=== PATIENT | female | born 1985 | race Two or more races ===

== ENCOUNTER 2018-10-30 10:17 | Inpatient (IN) | payer OTHER ==
[2018-10-30 11:32] VITALS: BMI 20.8
--- NOTE | 2018-10-30 12:04 | HP ---
CIWA Score Nausea/Vomitin-No Nausea/No Vomiting Muscle Tremors: 1-None Visible, but [place] Anxiety: 4-Mod. Anxious/Guarded Agitation: 3 Paroxysmal Sweats: No Perspiration Orientation: 0-Oriented Tacttile Disturbances: 3-Moderate Itch/Numb/Burn Auditory Disturbances: 0-None Visual Disturbances: 0-None Headache: 3-Moderate CIWA-Ar Total Score: 14 - Admission Criteria OASAS Guidelines: Admission for Medically Managed Detox: Requires at least one of the followin. CIWA greater than 12 2. Seizures within the past 24 hours 3. Delirium tremens within the past 24 hours 4. Hallucinations within the past 24 hours 5. Acute intervention needed for co occurring medical disorder 6. Acute intervention needed for co occurring psychiatric disorder 7. Severe withdrawal that cannot be handled at a lower level of care (continued vomiting, continued diarrhea, abnormal vital signs) requiring intravenous medication and/or fluids 8. Admission ROS [facility] Chief Complaint: ETOH WITHDRAWAL SX AND CRACK/COCAINE DEPENDENCE. Allergies/Adverse Reactions: Allergies Allergy/AdvReac Type Severity Reaction Status Date / Time No Known Allergies Allergy Verified 10/30/18 11:35 History of Present Illness: PATIENT PRESENTS WITH ETOH WITHDRAWAL SX AND CRACK/COCAINE DEPENDENCE. PATIENT STARTED DRINKING AT AGE 15 AND SMOKING CRACK AT AGE 31. PATIENT DRINKS 1 PINT OF LIQUOR DAILY AND LAST DRINK THIS AM. PATIENT DRINKS FIRST THING IN THE MORNING AND HAS HX OF BLACKOUTS. DENIES HX OF SEIZURES AND FALLS. ATTEMPTED REHAB LAST YEAR. THIS IS FIRST ADMISSION TO DETOX. PATIENT SMOKES 100 DOLLARS DAILY OF CRACK. LAST TIME SHE SMOKED WAS LAST NIGHT. PATIENT DENIES LEGAL ISSUES. HAS HX OF HIV SINCE , NON-COMPLIANT WITH MEDICATION, CVA AND INSOMNIA. DENIES SI/HI AND SUICIDE ATTEMPTS. Exam Limitations: No Limitations - Ebola screening Have you traveled outside of the country in the last 21 days: No Have you had contact with anyone from an Ebola affected area: No Have you been sick,other than usual withdrawal symptoms: No Do you have a fever: No - Review of Systems Constitutional: Changes in sleep, Unexplained wgt Loss EENT: reports: Nose Congestion Respiratory: reports: Cough Cardiac: reports: No Symptoms Reported GI: reports: Nausea, Poor Fluid Intake, Abdominal cramping : reports: Burning Musculoskeletal: reports: No Symptoms Reported Integumentary: reports: Flushing Neuro: reports: Headache, Numbness, Tingling, Tremors Endocrine: reports: Unexplained Weight Loss Hematology: reports: No Symptoms Reported Psychiatric: reports: Orientated x3, Anxious Patient History - Patient Medical History Hx Anemia: No Hx Asthma: No Hx Chronic Obstructive Pulmonary Disease (COPD): No Hx Cancer: No Hx Cardiac Disorders: No Hx Congestive Heart Failure: No Hx Hypertension: No Hx Hypercholesterolemia: No Hx Pacemaker: No HX Cerebrovascular Accident: No Hx Seizures: No Hx Dementia: No Hx Diabetes: No Hx Gastrointestinal Disorders: No Hx Liver Disease: No Hx Genitourinary Disorders: No Hx Sexually Transmitted Disorders: No Hx Renal Disease (ESRD): No Hx Thyroid Disease: No Hx Human Immunodeficiency Virus (HIV): Yes (SINCE , NONCOMPLIANT WITH TREATMENT) Hx Hepatitis C: No Hx Depression: No Hx Suicide Attempt: No Hx Bipolar Disorder: No Hx Schizophrenia: No - Patient Surgical History Past Surgical History: Yes Hx Neurologic Surgery: No Hx Cataract Extraction: No Hx Cardiac Surgery: No Hx Lung Surgery: Yes (pneumothorax, left in 2012) Hx Breast Surgery: No Hx Breast Biopsy: No Hx Abdominal Surgery: No Hx Appendectomy: No Hx Cholecystectomy: No Hx Genitourinary Surgery: No Hx Section: Yes (x3) Hx Orthopedic Surgery: No Hx Hysterectomy: No Anesthesia Reaction: No - PPD History Previous Implant?: Yes Documented Results: Negative w/o proof Implanted On Prior R Admission?: No PPD to be Administered?: Yes - Reproductive History Patient is a Female of Child Bearing Age (11 -55 yrs old): Yes Patient : No - Smoking Cessation Smoking history: Current every day smoker Have you smoked in the past 12 months: Yes Aproximately how many cigarettes per day: 10 Hx Chewing Tobacco Use: No Initiated information on smoking cessation: Yes 'Breaking Loose' booklet given: 10/30/18 - Substance & Tx. History Hx Alcohol Use: Yes Hx Substance Use: Yes Substance Use Type: Alcohol, Cocaine Hx Substance Use Treatment: Yes - Substances Abused Crack Route: Smoking Frequency: Daily Amount used: $100 Age of first use: 31 Date of Last Use: 10/29/18 Alcohol-vodka/beer Route: Oral Frequency: Daily Amount used: 2 pts./1-6 pk. Age of first use: 15 Date of Last Use: 10/29/18 Family Disease History - Family Disease History Family Disease History: Other: Mother (,AIDS) Admission Physical Exam [facility] - Vital Signs Vital Signs: Vital Signs - 24 hr 10/30/18 11:28 Temperature 96.1 F L Pulse Rate 113 H Respiratory 17 Rate Blood Pressure 110/71 - Physical General Appearance: Yes: Disheveled, Thin, Tremorous, Anxious HEENTM: Yes: EOMI, Hearing grossly Normal, Normocephalic, Normal Voice, SILAS, Pharynx Normal, Nasal Congestion Respiratory: Yes: Chest Non-Tender, Lungs Clear, Normal Breath Sounds, No Respiratory Distress, No Accessory Muscle Use Neck: Yes: No masses,lesions,Nodules, Supple Breast: Yes: Breast Exam Deferred Cardiology: Yes: Regular Rhythm, Regular Rate, S1, S2 Abdominal: Yes: Normal Bowel Sounds, Non Tender, Soft Genitourinary: Yes: Burning Back: Yes: Normal Inspection Musculoskeletal: Yes: full range of Motion, Gait Steady Extremities: Yes: Normal Inspection, Normal Range of Motion, Tremors Neurological: Yes: 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 NML intact, Fully Oriented, Alert, Motor Strength 5/5, Normal Response, Other (ANXIOUS) Integumentary: Yes: Normal Color, Dry, Warm - Diagnostic (1) Alcohol dependence with uncomplicated withdrawal Current Visit: Yes Status: Acute (2) Cocaine dependence Current Visit: Yes Status: Chronic Qualifiers: Substance use status: uncomplicated Qualified Code(s): F14.20 - Cocaine dependence, uncomplicated (3) HIV positive Current Visit: Yes Status: Chronic (4) Old cerebrovascular accident (CVA) without late effect Current Visit: Yes Status: Chronic (5) Dysuria Current Visit: Yes Status: Acute Cleared for Admission [facility] - Detox or Rehab [facility] Level of Care: Medically Managed Detox Regimen/Protocol: Librium [facility] Breath Alcohol Content Breath Alcohol Content: 0 Urine Pregancy Test - Result Urine Test Results: Negative- NO Line Present Urine Drug Screen - Results Drug Screen Negative: No Urine Drug Screen Results: OPAL-Cocaine
[2018-10-30] MEDS ORDERED: P-EPHED 60MG/TRIPROLIDI 2.5MG TABLET PO PRN (12:15)
[2018-10-30] MEDS ORDERED: IBUPROFEN 400 MG TABLET (FP) PO PRN (12:15)
[2018-10-30] MEDS ORDERED: ACETAMINOPHEN 325 MG TABLET (FP) PO PRN (12:15)
[2018-10-30] MEDS ORDERED: MAGNESIUM CITRATE 300 ML BOTTLE PO PRN (12:15)
[2018-10-30] MEDS ORDERED: MAGNESIUM HYDROX 2400MG/30ML ORAL SUSPENSION 30 ML CUP PO PRN (12:15)
[2018-10-30] MEDS ORDERED: LOPERAMIDE HCL 2 MG CAPSULE PO PRN (12:15)
[2018-10-30] MEDS ORDERED: guaiFENesin/D-METHORPHAN HB 10 ML UNIT-DOSE CUPS PO PRN (12:15)
[2018-10-30] MEDS ORDERED: MENTHOL/PHENOL 1 EACH UD MM PRN (12:15)
[2018-10-30] MEDS ORDERED: MAG HYDROX/AL HYDROX/SIMETH 30 ML UNIT-DOSE CUP PO PRN (12:15)
[2018-10-30] MEDS ORDERED: NICOTINE POLACRILEX 2 MG GUM BUC PRN (12:15)
[2018-10-30] MEDS ORDERED: chlordiazePOXIDE HCL 25 MG CAPSULE PO PRN (12:17)
--- NOTE | 2018-10-30 13:03 | EKG ---
Test Reason : Blood Pressure : / mmHG Vent. Rate : 109 BPM Atrial Rate : 109 BPM P-R Int : 146 ms QRS Dur : 072 ms QT Int : 314 ms P-R-T Axes : 064 060 026 degrees QTc Int : 422 ms SINUS TACHYCARDIA POSSIBLE LEFT ATRIAL ENLARGEMENT BORDERLINE ECG NO PREVIOUS ECGS AVAILABLE Confirmed by Vin Lacey ([id number]) on 10/30/2018 1:03:08 PM Referred By: Confirmed By:Vin Lacey
[2018-10-30] MEDS: chlordiazePOXIDE HCL 25 MG CAPSULE PO SCH ×2 (17:23→22:52)
[2018-10-30 17:49] LABS: URINE APPEARANCE TURBID; URINE BILIRUBIN NEGATIVE (<2.0 mg/dL); URINE COLOR AMBER; URINE GLUCOSE (UA) NEGATIVE (NEGATIVE); URINE KETONE 1+ (NEGATIVE); URINE LEUK ESTERASE 2+ (NEGATIVE); URINE NITRITE POSITIVE (NEGATIVE); URINE PROTEIN 2+ (NEGATIVE); URINE UROBILINOGEN NEGATIVE mg/dL (0.2-1.0)
[2018-10-30 17:58] LABS: EPI CELLS RARE /HPF (FEW); URINE MUCUS FEW
[2018-10-30] MEDS: THIAMINE HCL 100 MG TABLET (FP) PO SCH (22:52)
[2018-10-30] MEDS: MELATONIN 5 MG TABLETS PO PRN (22:52)
[2018-10-31] MEDS: chlordiazePOXIDE HCL 25 MG CAPSULE PO SCH ×4 (05:51→22:08)
[2018-10-31] MEDS: PRENATAL VITAMINS W/ FOLIC ACID TABLET (FP) PO SCH (10:35)
[2018-10-31] MEDS: NICOTINE 21 MG/24 HOURS TOPICAL PATCH TD SCH (10:35)
[2018-10-31 11:00] LABS: HEMATOCRIT 43.4 % (32.4-45.2); HEMOGLOBIN 14.4 GM/dL (10.7-15.3); MCH 30.2 pg (25.7-33.7); MCHC 33.2 g/dl (32.0-36.0); MEAN CELL VOLUME 91.1 fl (80-96); MEAN PLT VOLUME 12.6 fl (7.5-11.1); PLATELET COUNT 81 K/MM3 (134-434); RBC 4.77 M/mm3 (3.60-5.2); WHITE BLOOD COUNT 3.1 K/mm3 (4.0-10.0)
[2018-10-31 11:39] LABS: ALBUMIN 3.3 g/dl (3.4-5.0); ALK PHOS 74 U/L (45-117); ANION GAP 11 MMOL/L (8-16); BILIRUBIN,TOTAL 0.4 mg/dL (0.2-1); BLOOD UREA NITROGEN 15 mg/dL (7-18); CALCIUM 8.6 mg/dL (8.5-10.1); CHLORIDE 105 mmol/L (98-107); CO2 23 mmol/L (21-32); CREATININE 1.1 mg/dL (0.55-1.3); GLUCOSE,RANDOM 108 mg/dL (74-106); SGOT/AST 48 U/L (15-37); SGPT/ALT 35 U/L (13-61); SODIUM 138 mmol/L (136-145); TOT PROT 8.8 g/dl (6.4-8.2)
[2018-10-31] MEDS ORDERED: FLU VACCINE QUAD 60 MCG/0.5 ML (MDV 18-19) IM ONE (12:00)
[2018-10-31 13:03] LABS: POTASSIUM 2.8 mmol/L (3.5-5.1)
--- NOTE | 2018-10-31 14:14 | PN ---
[facility] CIWA - CIWA Score Nausea/Vomitin-No Nausea/No Vomiting Muscle Tremors: 3 Anxiety: 2 Agitation: 3 Paroxysmal Sweats: 2 Orientation: 0-Oriented Tacttile Disturbances: 0-None Auditory Disturbances: 0-None Visual Disturbances: 0-None Headache: 0-None Present CIWA-Ar Total Score: 10 S Progress Note (SOAP) Subjective: tired sleepy sweats mild shakes interrupted sleep body aches Objective: 10/31/18 14:13 Vital Signs Temperature 97.9 F 10/31/18 13:30 Pulse Rate 105 H 10/31/18 13:30 Respiratory Rate 18 10/31/18 13:30 Blood Pressure 99/64 10/31/18 13:30 O2 Sat by Pulse Oximetry (%) Laboratory Tests 10/30/18 10/31/18 10/31/18 17:00 06:00 06:00 WBC 3.1 L RBC 4.77 Hgb 14.4 Hct 43.4 MCV 91.1 MCH 30.2 MCHC 33.2 RDW 15.0 Plt Count 81 L MPV 12.6 H Sodium 138 Potassium 2.8 L* Chloride 105 Carbon Dioxide 23 Anion Gap 11 BUN 15 Creatinine 1.1 Creat Clearance w eGFR 57.20 Random Glucose 108 H Calcium 8.6 Total Bilirubin 0.4 AST 48 H ALT 35 Alkaline Phosphatase 74 Total Protein 8.8 H Albumin 3.3 L Urine Color Kaylee Urine Appearance Turbid Urine pH 6.0 Ur Specific [place] 1.025 Urine Protein 2+ H Urine Glucose (UA) Negative Urine Ketones 1+ H Urine Blood 2+ H Urine Nitrite Positive Urine Bilirubin Negative Urine Urobilinogen Negative Ur Leukocyte Esterase 2+ H Urine WBC (Auto) 1623 Urine RBC (Auto) 89 Ur Epithelial Cells Rare Urine Mucus Few RPR Titer 10/31/18 06:00 WBC RBC Hgb Hct MCV MCH MCHC RDW Plt Count MPV Sodium Potassium Chloride Carbon Dioxide Anion Gap BUN Creatinine Creat Clearance w eGFR Random Glucose Calcium Total Bilirubin AST ALT Alkaline Phosphatase Total Protein Albumin Urine Color Urine Appearance Urine pH Ur Specific [place] Urine Protein Urine Glucose (UA) Urine Ketones Urine Blood Urine Nitrite Urine Bilirubin Urine Urobilinogen Ur Leukocyte Esterase Urine WBC (Auto) Urine RBC (Auto) Ur Epithelial Cells Urine Mucus RPR Titer Nonreactive low potassium noted; kcl ordered repeat u/a aaox3 lying in bed no acute distress Assessment: 10/31/18 14:14 withdrawal sx Plan: continue detox increase fluids
[2018-10-31] MEDS: POTASSIUM CHLORIDE ORAL LIQUID 20 MEQ/15 ML PO SCH ×3 (14:45→22:08)
[2018-10-31] MEDS: THIAMINE HCL 100 MG TABLET (FP) PO SCH (22:08)
[2018-10-31] MEDS: MELATONIN 5 MG TABLETS PO PRN (22:09)
[2018-11-01] MEDS: hydrOXYzine PAMOATE 50 MG CAPSULE (FP) PO PRN (00:38)
[2018-11-01] MEDS: POTASSIUM CHLORIDE ORAL LIQUID 20 MEQ/15 ML PO SCH (03:30)
[2018-11-01] MEDS: chlordiazePOXIDE HCL 25 MG CAPSULE PO SCH ×2 (05:47→11:09)
[2018-11-01] MEDS: NICOTINE 21 MG/24 HOURS TOPICAL PATCH TD SCH (11:06)
[2018-11-01] MEDS: PRENATAL VITAMINS W/ FOLIC ACID TABLET (FP) PO SCH (11:06)
--- NOTE | 2018-11-01 14:05 | PN ---
[facility] CIWA - CIWA Score Nausea/Vomitin-No Nausea/No Vomiting Muscle Tremors: 3 Anxiety: 3 Agitation: 3 Paroxysmal Sweats: 2 Orientation: 0-Oriented Tacttile Disturbances: 0-None Auditory Disturbances: 0-None Visual Disturbances: 0-None Headache: 0-None Present CIWA-Ar Total Score: 11 [facility] Progress Note (SOAP) Subjective: sweats body aches tired interrupted sleep Objective: 11/01/18 14:04 Vital Signs Temperature 98.8 F 11/01/18 09:24 Pulse Rate 118 H 11/01/18 09:24 Respiratory Rate 18 11/01/18 09:24 Blood Pressure 111/78 11/01/18 09:24 O2 Sat by Pulse Oximetry (%) Laboratory Tests 10/30/18 10/31/18 10/31/18 17:00 06:00 06:00 WBC 3.1 L RBC 4.77 Hgb 14.4 Hct 43.4 MCV 91.1 MCH 30.2 MCHC 33.2 RDW 15.0 Plt Count 81 L MPV 12.6 H Sodium 138 Potassium 2.8 L* Chloride 105 Carbon Dioxide 23 Anion Gap 11 BUN 15 Creatinine 1.1 Creat Clearance w eGFR 57.20 Random Glucose 108 H Calcium 8.6 Total Bilirubin 0.4 AST 48 H ALT 35 Alkaline Phosphatase 74 Total Protein 8.8 H Albumin 3.3 L Urine Color Kaylee Urine Appearance Turbid Urine pH 6.0 Ur Specific [place] 1.025 Urine Protein 2+ H Urine Glucose (UA) Negative Urine Ketones 1+ H Urine Blood 2+ H Urine Nitrite Positive Urine Bilirubin Negative Urine Urobilinogen Negative Ur Leukocyte Esterase 2+ H Urine WBC (Auto) 1623 Urine RBC (Auto) 89 Ur Epithelial Cells Rare Urine Mucus Few RPR Titer 10/31/18 06:00 WBC RBC Hgb Hct MCV MCH MCHC RDW Plt Count MPV Sodium Potassium Chloride Carbon Dioxide Anion Gap BUN Creatinine Creat Clearance w eGFR Random Glucose Calcium Total Bilirubin AST ALT Alkaline Phosphatase Total Protein Albumin Urine Color Urine Appearance Urine pH Ur Specific [place] Urine Protein Urine Glucose (UA) Urine Ketones Urine Blood Urine Nitrite Urine Bilirubin Urine Urobilinogen Ur Leukocyte Esterase Urine WBC (Auto) Urine RBC (Auto) Ur Epithelial Cells Urine Mucus RPR Titer Nonreactive potassium level ordered for tomorrow aaox3 lying in bed no acute distress Assessment: 11/01/18 14:05 withdrawal sx Plan: continue detox hold if librium too sedating increase fluids
[2018-11-01] MEDS ORDERED: chlordiazePOXIDE 5 MG CAPSULE PO SCH (17:00)
[2018-11-01 18:50] LABS: URINE APPEARANCE SLCLOUDY; URINE BILIRUBIN NEGATIVE (<2.0 mg/dL); URINE COLOR STRAW; URINE GLUCOSE (UA) NEGATIVE (NEGATIVE); URINE KETONE NEGATIVE (NEGATIVE); URINE LEUK ESTERASE 2+ (NEGATIVE); URINE NITRITE NEGATIVE (NEGATIVE); URINE PROTEIN 1+ (NEGATIVE); URINE UROBILINOGEN NEGATIVE mg/dL (0.2-1.0)
[2018-11-01 18:54] LABS: EPI CELLS RARE /HPF (FEW)
[2018-11-01] MEDS: MELATONIN 5 MG TABLETS PO PRN (22:12)
[2018-11-01] MEDS: THIAMINE HCL 100 MG TABLET (FP) PO SCH (22:13)
[2018-11-02] MEDS: hydrOXYzine PAMOATE 50 MG CAPSULE (FP) PO PRN (05:15)
--- NOTE | 2018-11-02 10:32 | PN ---
[facility] Progress Note (SOAP) Subjective: tired sweats feeling better Objective: 11/02/18 11:15 Vital Signs Temperature 98.2 F 11/02/18 09:45 Pulse Rate 118 H 11/02/18 09:45 Respiratory Rate 16 11/02/18 09:45 Blood Pressure 94/73 11/02/18 09:45 O2 Sat by Pulse Oximetry (%) Laboratory Tests 10/30/18 10/31/18 10/31/18 17:00 06:00 06:00 WBC 3.1 L RBC 4.77 Hgb 14.4 Hct 43.4 MCV 91.1 MCH 30.2 MCHC 33.2 RDW 15.0 Plt Count 81 L MPV 12.6 H Sodium 138 Potassium 2.8 L* Chloride 105 Carbon Dioxide 23 Anion Gap 11 BUN 15 Creatinine 1.1 Creat Clearance w eGFR 57.20 Random Glucose 108 H Calcium 8.6 Total Bilirubin 0.4 AST 48 H ALT 35 Alkaline Phosphatase 74 Total Protein 8.8 H Albumin 3.3 L Urine Color Kaylee Urine Appearance Turbid Urine pH 6.0 Ur Specific [place] 1.025 Urine Protein 2+ H Urine Glucose (UA) Negative Urine Ketones 1+ H Urine Blood 2+ H Urine Nitrite Positive Urine Bilirubin Negative Urine Urobilinogen Negative Ur Leukocyte Esterase 2+ H Urine WBC (Auto) 1623 Urine RBC (Auto) 89 Ur Epithelial Cells Rare Urine Mucus Few RPR Titer 10/31/18 10/31/18 11/02/18 06:00 14:00 07:00 WBC RBC Hgb Hct MCV MCH MCHC RDW Plt Count MPV Sodium 140 Potassium 3.9 Chloride 108 H Carbon Dioxide 25 Anion Gap 7 L BUN 20 H Creatinine 0.9 Creat Clearance w eGFR > 60 Random Glucose 79 Calcium 8.5 Total Bilirubin 0.4 AST 39 H ALT 36 Alkaline Phosphatase 69 Total Protein 8.0 Albumin 3.0 L Urine Color Straw Urine Appearance Slcloudy Urine pH 7.0 Ur Specific [place] 1.016 Urine Protein 1+ H Urine Glucose (UA) Negative Urine Ketones Negative Urine Blood 3+ H Urine Nitrite Negative Urine Bilirubin Negative Urine Urobilinogen Negative Ur Leukocyte Esterase 2+ H Urine WBC (Auto) 164 Urine RBC (Auto) 488 Ur Epithelial Cells Rare Urine Mucus RPR Titer Nonreactive labs noted potassium improved aaox3 ambulating no acute distress Assessment: 11/02/18 11:16 mild withdrawal sx Plan: continue detox increase fluids d/c to rehab later today if bed is available
[2018-11-02] MEDS: PRENATAL VITAMINS W/ FOLIC ACID TABLET (FP) PO SCH (11:11)
[2018-11-02] MEDS: NICOTINE 21 MG/24 HOURS TOPICAL PATCH TD SCH (11:12)
[2018-11-02 11:13] LABS: ALK PHOS 69 U/L (45-117); ANION GAP 7 MMOL/L (8-16); BILIRUBIN,TOTAL 0.4 mg/dL (0.2-1); BLOOD UREA NITROGEN 20 mg/dL (7-18); CALCIUM 8.5 mg/dL (8.5-10.1); CHLORIDE 108 mmol/L (98-107); CO2 25 mmol/L (21-32); CREATININE 0.9 mg/dL (0.55-1.3); GLUCOSE,RANDOM 79 mg/dL (74-106); POTASSIUM 3.9 mmol/L (3.5-5.1); SGOT/AST 39 U/L (15-37); SGPT/ALT 36 U/L (13-61); SODIUM 140 mmol/L (136-145)
[2018-11-02 14:53] VITALS: BP 121/81; PULSE 120; TEMP 97.7
[2018-11-02] MEDS ORDERED: chlordiazePOXIDE HCL 10 MG CAPSULE PO SCH (17:00)
== END 2018-11-02 18:16 | disposition other institution (70) | DRG 774 ==
LOC: YASAS 10:17 → Y6N 12:26
PROC: HZ2ZZZZ Detoxification Services for Substance Abuse Treatment (ICD-10-PCS; principal; 2018-10-30)
DX: F10.230 Alcohol dependence with withdrawal, uncomplicated (principal); F14.20 Cocaine dependence, uncomplicated; F17.210 Nicotine dependence, cigarettes, uncomplicated; Z21 Asymptomatic human immunodeficiency virus [HIV] infection status; R30.0 Dysuria; Z86.73 Personal history of transient ischemic attack (TIA), and cerebral infarction without residual deficits; Z91.14 Patient's other noncompliance with medication regimen
CPT/HCPCS: 36415; 80053; 81003; 81015; 85027; 86593; 93005; 93010

== ENCOUNTER 2018-11-02 18:53 | Inpatient (IN) | payer OTHER ==
--- NOTE | 2018-11-02 12:00 | HP ---
KATELIN MONTANO Rehab Assess/Revision - Admission History Admitted to Rehab from: [facility] - Findings Detox History & Physical reviewed: Yes Concur with findings: Yes
--- NOTE | 2018-11-02 12:00 | HP ---
Inpatient Rehab Admission - Initial Determination Are CD services needed?: Yes Free of communicable disease: Yes Not in need of hospitalization: Yes - Rehab Admission Criteria Previous failed treatment: Yes Poor recovery environment: Yes Comorbidities: Yes Lacks judgement: Yes
[~2018-11-02 18:53] MED LIST: IBUPROFEN 400 MG TABLET (FP) PO PRN; LOPERAMIDE HCL 2 MG CAPSULE PO PRN; MAG HYDROX/AL HYDROX/SIMETH 30 ML UNIT-DOSE CUP PO PRN; MAGNESIUM CITRATE 300 ML BOTTLE PO PRN; MAGNESIUM HYDROX 2400MG/30ML ORAL SUSPENSION 30 ML CUP PO PRN; MENTHOL/PHENOL 1 EACH UD MM PRN; P-EPHED 60MG/TRIPROLIDI 2.5MG TABLET PO PRN; guaiFENesin/D-METHORPHAN HB 10 ML UNIT-DOSE CUPS PO PRN
[2018-11-02] MEDS: MELATONIN 5 MG TABLETS PO PRN (21:45)
[2018-11-02] MEDS: THIAMINE HCL 100 MG TABLET (FP) PO SCH (21:45)
[2018-11-03] MEDS: hydrOXYzine PAMOATE 50 MG CAPSULE (FP) PO PRN ×2 (06:41→21:00)
[2018-11-03] MEDS: ACETAMINOPHEN 325 MG TABLET (FP) PO PRN (09:02)
[2018-11-03] MEDS: NICOTINE 21 MG/24 HOURS TOPICAL PATCH TD SCH (09:02)
[2018-11-03] MEDS: PRENATAL VITAMINS W/ FOLIC ACID TABLET (FP) PO SCH (09:02)
--- NOTE | 2018-11-03 15:20 | PN ---
[facility] Progress Note Note: TC from RN - Pt c/o frequency, dysuria, hesitancy. Bactrim ordered
[2018-11-03] MEDS: MELATONIN 5 MG TABLETS PO PRN (21:00)
[2018-11-03] MEDS: THIAMINE HCL 100 MG TABLET (FP) PO SCH (21:00)
[2018-11-03] MEDS: SULFAMETHOXAZOLE/TRIMETHOPRIM 800MG/160MG D.S. TABLET PO SCH (21:00)
[2018-11-04] MEDS: hydrOXYzine PAMOATE 50 MG CAPSULE (FP) PO PRN ×2 (06:31→21:25)
[2018-11-04] MEDS: NICOTINE 21 MG/24 HOURS TOPICAL PATCH TD SCH (09:39)
[2018-11-04] MEDS: SULFAMETHOXAZOLE/TRIMETHOPRIM 800MG/160MG D.S. TABLET PO SCH ×2 (09:40→21:15)
[2018-11-04] MEDS: PRENATAL VITAMINS W/ FOLIC ACID TABLET (FP) PO SCH (09:40)
[2018-11-04] MEDS: ACETAMINOPHEN 325 MG TABLET (FP) PO PRN (09:42)
[2018-11-04] MEDS: MELATONIN 5 MG TABLETS PO PRN (21:15)
[2018-11-04] MEDS: THIAMINE HCL 100 MG TABLET (FP) PO SCH (21:15)
[2018-11-05] MEDS: hydrOXYzine PAMOATE 50 MG CAPSULE (FP) PO PRN ×2 (02:10→23:08)
[2018-11-05] MEDS: PRENATAL VITAMINS W/ FOLIC ACID TABLET (FP) PO SCH (10:03)
[2018-11-05] MEDS: ACETAMINOPHEN 325 MG TABLET (FP) PO PRN (10:03)
[2018-11-05] MEDS: NICOTINE 21 MG/24 HOURS TOPICAL PATCH TD SCH (10:03)
[2018-11-05] MEDS: SULFAMETHOXAZOLE/TRIMETHOPRIM 800MG/160MG D.S. TABLET PO SCH ×2 (10:51→21:06)
--- NOTE | 2018-11-05 11:05 | HP ---
Psychiatrist Admission - Data Date of interview: 11/05/18 Admission source: [address] [place] [address] Identifying data: This is the first admission to [address] [place] [address] rehabilitation for this 33 years old single mother of 3 boys(12,10 and 7 yo) .Children reside with their father.Patient resides in [facility],supported by [facility]. Medical History: HIV+ since she was born. Psychiatric History: Patient reports some sleeping difficulties on and off.She was prescribed Ambien 10 mg po hs and Seroquel 200 mg po hs by psychiatrist at her HIV clinic.Patient was not on any psychotropic medications in detox.No psychiatric hospitalizations reported,no suicidal attempts.Still reports difficulties to fall asleep. Physical/Sexual Abuse/Trauma History: patient denies Allergies/Adverse Reactions: Allergies Allergy/AdvReac Type Severity Reaction Status Date / Time No Known Allergies Allergy Verified 10/30/18 11:35 Date of last physical exam: 10/30/18 Concur with the findings of this exam: Yes - Substance Abuse/Tx History Hx Alcohol Use: Yes (drinking since 15 yo,vodka,beer) Hx Substance Use: Yes (cocaine since 31 yo,spending about $100) Substance Use Type: Alcohol, Cocaine Hx Substance Use Treatment: Yes (completed inpatient rehab 2 years ago.) Mental Status Exam - Mental Status Exam Alert and Oriented to: Time, Place, Person Cognitive Function: Grossly Intact Patient Appearance: Well Groomed Mood: Euthymic Affect: Mood Congruent Patient Behavior: Cooperative Speech Pattern: Clear Voice Loudness: Normal Thought Process: Goal Oriented Thought Disorder: Not Present Hallucinations: Denies Suicidal Ideation: Denies Homicidal Ideation: Denies Insight/Judgement: Fair Sleep: Difficulty falling asleep Appetite: Good Muscle strength/Tone: Normal Gait/Station: Normal Psychiatric Findings - Problem List ([place] 1, 2,3) (1) Cocaine dependence Current Visit: Yes Status: Chronic Qualifiers: (2) HIV positive Current Visit: Yes Status: Chronic (3) Old cerebrovascular accident (CVA) without late effect Current Visit: Yes Status: Chronic (4) Alcohol dependence Current Visit: Yes Status: Chronic - Initial Treatment Plan Initial Treatment Plan: Seroquel 50 mg po hs.Will monitor progress.
[2018-11-05] MEDS: THIAMINE HCL 100 MG TABLET (FP) PO SCH (21:07)
[2018-11-05] MEDS ORDERED: QUEtiapine FUMARATE 50 MG TABLET PO SCH (22:00)
[2018-11-06 07:28] VITALS: BP 86/65; PULSE 98; TEMP 98.1
[2018-11-06] MEDS: NICOTINE 21 MG/24 HOURS TOPICAL PATCH TD SCH (09:37)
[2018-11-06] MEDS: SULFAMETHOXAZOLE/TRIMETHOPRIM 800MG/160MG D.S. TABLET PO SCH (09:37)
[2018-11-06] MEDS: PRENATAL VITAMINS W/ FOLIC ACID TABLET (FP) PO SCH (09:37)
--- NOTE | 2018-11-06 11:44 | PN ---
[facility] Progress Note Note: Pt stated she had to leave before completion of the program Pt insisted on leaving despite education by provder and counselor to complete rehab. Pt decline stating "I will lose my apartment if I don't leave". pt stated that she will do aftercare by attending outpatrient at [facility] She will also f/u with her infectious disease MD Dr Austin Miller at [facility], "especially to get back on my HIV meds". pt was A & O x 3 and was in stable condition. Pt was also seen by the counselor
== END 2018-11-06 10:43 | disposition left against medical advice (07) | DRG 770 ==
LOC: YASAS 18:53 → Y3E 18:54
PROVIDERS: ADMIT Psychiatry & Neurology Psychiatry; ATTEND Psychiatry & Neurology Psychiatry
PROC: HZ42ZZZ Group Counseling for Substance Abuse Treatment, Cognitive-Behavioral (ICD-10-PCS; principal; 2018-11-02)
DX: F10.20 Alcohol dependence, uncomplicated (principal); F14.20 Cocaine dependence, uncomplicated; F19.282 Other psychoactive substance dependence with psychoactive substance-induced sleep disorder; Z21 Asymptomatic human immunodeficiency virus [HIV] infection status; Z86.73 Personal history of transient ischemic attack (TIA), and cerebral infarction without residual deficits

== ENCOUNTER 2021-01-05 16:08 | Inpatient (IN) | payer OTHER ==
[2021-01-05 19:00] VITALS: BMI 20.1
[2021-01-05] MEDS ORDERED: ACETAMINOPHEN 325 MG TABLET (FP) PO PRN (19:18)
[2021-01-05] MEDS ORDERED: BISMUTH SUBSALICYLATE 524 MG/30 ML UD PO PRN (19:18)
[2021-01-05] MEDS ORDERED: IBUPROFEN 400 MG TABLET (FP) PO PRN (19:18)
[2021-01-05] MEDS ORDERED: METHOCARBAMOL 500 MG TABLET PO PRN (19:18)
[2021-01-05] MEDS ORDERED: MENTHOL/PHENOL 1 EACH UD MM PRN (19:18)
[2021-01-05] MEDS ORDERED: ONDANSETRON *ODT* 4 MG TABLET SL PRN (19:18)
[2021-01-05] MEDS ORDERED: MAG HYDROX/AL HYDROX/SIMETH 30 ML UNIT-DOSE CUP PO PRN (19:18)
[2021-01-05] MEDS ORDERED: LORazepam 1 MG TABLET PO PRN (19:18)
[2021-01-05] MEDS ORDERED: MAGNESIUM HYDROX 2400MG/30ML ORAL SUSPENSION 30 ML CUP PO PRN (19:18)
[2021-01-05] MEDS ORDERED: NICOTINE POLACRILEX 2 MG GUM BUC PRN (19:18)
[2021-01-05] MEDS ORDERED: MAGNESIUM CITRATE 300 ML BOTTLE PO PRN (19:18)
[2021-01-05] MEDS: NICOTINE 14 MG/24 HOURS TOPICAL PATCH TD SCH (20:58)
[2021-01-05] MEDS ORDERED: LORazepam 2 MG TABLET ONE (21:20)
[2021-01-05] MEDS: PRENATAL VITAMINS W/ FOLIC ACID TABLET (FP) PO SCH (21:22)
[2021-01-05] MEDS: hydrOXYzine PAMOATE 25 MG CAPSULE (FP) PO SCH (23:14)
[2021-01-05] MEDS: MELATONIN 5 MG TABLETS PO SCH (23:14)
[2021-01-05] MEDS: THIAMINE HCL 100 MG TABLET (FP) PO SCH (23:14)
[2021-01-05] MEDS: LORazepam 2 MG TABLET PO SCH (23:14)
[2021-01-05] MEDS ORDERED: hydrOXYzine PAMOATE 25 MG CAPSULE (FP) PO ONE (23:15)
[2021-01-06] MEDS: NITROFURANTOIN MACROCRYSTAL 50 MG CAPSULE (FP) PO SCH ×5 (03:40→23:22)
[2021-01-06] MEDS ORDERED: LORazepam 2 MG TABLET ONE ×2 (05:15→09:50)
[2021-01-06] MEDS: LORazepam 2 MG TABLET PO SCH ×4 (05:16→22:15)
[2021-01-06] MEDS ORDERED: hydrOXYzine PAMOATE 25 MG CAPSULE (FP) PO ONE ×2 (07:02→09:50)
[2021-01-06] MEDS: hydrOXYzine PAMOATE 25 MG CAPSULE (FP) PO SCH ×3 (07:02→14:04)
[2021-01-06] MEDS ORDERED: ASPIRIN 81 MG CHEWABLE TABLETS ONE (09:49)
[2021-01-06] MEDS ORDERED: NICOTINE 14 MG/24 HOURS TOPICAL PATCH TD ONE (09:50)
[2021-01-06] MEDS: PRENATAL VITAMINS W/ FOLIC ACID TABLET (FP) PO SCH (10:15)
[2021-01-06] MEDS: ASPIRIN 81 MG CHEWABLE TABLETS PO SCH (10:15)
[2021-01-06] MEDS: NICOTINE 14 MG/24 HOURS TOPICAL PATCH TD SCH (10:15)
[2021-01-06 13:47] LABS: POTASSIUM 3.7 mmol/L (3.5-5.1)
[2021-01-06 13:54] LABS: HEMATOCRIT 36.6 % (32.4-45.2); HEMOGLOBIN 12.6 GM/dL (10.7-15.3); MCH 30.1 pg (25.7-33.7); MCHC 34.4 g/dl (32.0-36.0); MEAN CELL VOLUME 87.4 fl (80-96); MEAN PLT VOLUME 13.3 fl (7.5-11.1); PLATELET COUNT 30 K/MM3 (134-434); RBC 4.19 M/mm3 (3.60-5.2); RDW 12.7 % (11.6-15.6); WHITE BLOOD COUNT 2.7 K/mm3 (4.0-10.0)
[2021-01-06 13:55] LABS: ALBUMIN 3.2 g/dl (3.4-5.0)
[2021-01-06 13:56] LABS: BLOOD UREA NITROGEN 10.5 mg/dL (7-18); CALCIUM 8.6 mg/dL (8.5-10.1)
[2021-01-06 13:59] LABS: CREATININE 0.9 mg/dL (0.55-1.3)
[2021-01-06 14:00] LABS: BILIRUBIN,TOTAL 0.5 mg/dL (0.2-1); TOT PROT 7.9 g/dl (6.4-8.2)
[2021-01-06] MEDS ORDERED: hydrOXYzine PAMOATE 25 MG CAPSULE (FP) PO PRN (15:20)
[2021-01-06] MEDS ORDERED: QUEtiapine FUMARATE 50 MG TABLET PO SCH (22:00)
[2021-01-06] MEDS: THIAMINE HCL 100 MG TABLET (FP) PO SCH (22:15)
[2021-01-06] MEDS: MELATONIN 5 MG TABLETS PO SCH (22:15)
[2021-01-07] MEDS: NITROFURANTOIN MACROCRYSTAL 50 MG CAPSULE (FP) PO SCH ×3 (06:50→17:59)
[2021-01-07] MEDS: LORazepam 1 MG TABLET PO SCH ×4 (06:50→23:39)
[2021-01-07] MEDS: ASPIRIN 81 MG CHEWABLE TABLETS PO SCH (10:18)
[2021-01-07] MEDS: PRENATAL VITAMINS W/ FOLIC ACID TABLET (FP) PO SCH (10:18)
[2021-01-07] MEDS: NICOTINE 14 MG/24 HOURS TOPICAL PATCH TD SCH (10:19)
[2021-01-07 12:50] VITALS: TEMP 96.9
[2021-01-07 19:14] VITALS: BP 97/73; PULSE 103
[2021-01-08] MEDS ORDERED: LORazepam 0.5 MG TABLET PO PRN
[2021-01-08] MEDS ORDERED: LORazepam 0.5 MG TABLET PO SCH (05:00)
[2021-01-09] MEDS ORDERED: LORazepam 0.5 MG TABLET PO ONE (05:00)
== END 2021-01-07 19:19 | disposition left against medical advice (07) | DRG 770 ==
LOC: YASAS 16:08 → Y3N 01-06 11:42
PROVIDERS: ADMIT Allergy & Immunology; ATTEND Allergy & Immunology
PROC: HZ2ZZZZ Detoxification Services for Substance Abuse Treatment (ICD-10-PCS; principal; 2021-01-06)
DX: F10.230 Alcohol dependence with withdrawal, uncomplicated (principal); F14.20 Cocaine dependence, uncomplicated; F12.20 Cannabis dependence, uncomplicated; F17.210 Nicotine dependence, cigarettes, uncomplicated; F19.24 Other psychoactive substance dependence with psychoactive substance-induced mood disorder; F32.9 Major depressive disorder, single episode, unspecified; Z21 Asymptomatic human immunodeficiency virus [HIV] infection status; D69.6 Thrombocytopenia, unspecified; D68.61 Antiphospholipid syndrome; H90.3 Sensorineural hearing loss, bilateral; I69.854 Hemiplegia and hemiparesis following other cerebrovascular disease affecting left non-dominant side; D72.819 Decreased white blood cell count, unspecified; N39.0 Urinary tract infection, site not specified
CPT/HCPCS: 36415; 80053; 85027; 86780; C9803; U0003